=== PATIENT | female | born 1985 | race Caucasian/White ===

== ENCOUNTER 2019-12-26 21:31 | Emergency (ER) | payer BC ==
--- NOTE | 2019-12-26 22:19 | ER Document Report ---
ED Medical Screen (RME) - General Chief Complaint: Finger Injury Stated Complaint: RIGHT RING FINGER INJURY Time Seen by Provider: 12/26/19 22:13 Notes: Patient is a 34-year-old female who presents to the emergency department with a chief complaint of right fourth digit injury. Patient reports a few hours prior to arrival she tripped and fell attempting to catch herself. Patient reports extreme pain to the right fourth digit. - Related Data Allergies/Adverse Reactions: No Known Allergies Allergy (Unverified 12/26/19 22:09) Past Medical History - Social History Frequency of alcohol use: None Drug Abuse: None Physical Exam - Vital signs Vitals: Temp Pulse Resp BP Pulse Ox 98.0 F 100 20 137/81 H 96 12/26/19 21:40 12/26/19 21:40 12/26/19 21:40 12/26/19 21:40 12/26/19 21:40 Course - Re-evaluation Re-evalutation: 12/26/19 22:18 Right fourth digit is swollen and there is an obvious deformity at the DIP joint. Less than 2-second cap refill. - Vital Signs Vital signs: Temp Pulse Resp BP Pulse Ox 98.0 F 100 20 137/81 H 96 12/26/19 21:40 12/26/19 21:40 12/26/19 21:40 12/26/19 21:40 12/26/19 21:40
--- NOTE | 2019-12-26 23:25 | RADIOLOGY REPORT (SQ) ---
EXAM DESCRIPTION: XR FINGERS COMPLETED DATE/TME: 12/26/2019 22:16 CLINICAL HISTORY: 34 years, Female, right 4th digit deformity COMPARISON: None. FINDINGS: 2 views of the right fourth digit. Minimally displaced avulsion fracture involving the dorsal aspect of the base of the fourth middle phalanx with corresponding boutonniere deformity of the fourth digit. Normal osseous mineralization. Soft tissue edema. IMPRESSION: 1. Minimally displaced avulsion fracture involving the dorsal aspect of the base of the fourth middle phalanx. copyright 2010 [employer]- All Rights Reserved
--- NOTE | 2019-12-26 23:46 | ER Document Report ---
HPI - HPI Time Seen by Provider: 12/26/19 22:13 Pain Level: 4 - REPRODUCTIVE Reproductive: DENIES: : Past Medical History - Social History Smoking Status: Never Smoker Frequency of alcohol use: None Drug Abuse: None Course - Vital Signs Vital signs: Temp Pulse Resp BP Pulse Ox 98.0 F 100 20 137/81 H 96 12/26/19 21:40 12/26/19 21:40 12/26/19 21:40 12/26/19 21:40 12/26/19 21:40 - Diagnostic Test Radiology reviewed: Reports reviewed Radiology results interpreted by me: 12/26/19 23:46 Finger X-Ray 12/26/19 22:16 IMPRESSION: 1. Minimally displaced avulsion fracture involving the dorsal aspect of the base of the fourth middle phalanx. copyright 2011 [employer]- All Rights Reserved
[2019-12-27] MEDS ORDERED: LIDOCAINE 1% INJ (10 MG/ML) 10 ML MDV INJ ONE (00:02)
[2019-12-27] MEDS ORDERED: BUPIVACAINE HCL 0.5 % INJ/PF 30 ML SDV INJ ONE (00:02)
--- NOTE | 2019-12-27 00:03 | ER Document Report ---
ED Hand/Wrist Injury - General Chief Complaint: Finger Injury Stated Complaint: RIGHT RING FINGER INJURY Time Seen by Provider: 12/26/19 22:13 Primary Care Provider: MODESTA GONZALEZ DO [Primary Care Provider] - Follow up as needed BERENICE ALVAREZ DO [ACTIVE STAFF] - Follow up tomorrow Notes: Patient is a 34-year-old female who comes emergency department for chief complaint of injury to her right hand, specifically her right fourth digit. Patient states she tripped, fell forward and attempted to catch herself with her hand, awkwardly jammed her right fourth digit on the ground, but managed not to fall with any other injuries. She denies any other complaints. She states her ring finger is bent, she cannot straighten it, and it is painful. She is not on any blood thinners. - Related Data Allergies/Adverse Reactions: No Known Allergies Allergy (Unverified 12/26/19 22:09) Past Medical History - General Information source: Patient - Social History Smoking Status: Never Smoker Frequency of alcohol use: None Drug Abuse: None Lives with: Family Family History: Reviewed & Not Pertinent - Immunizations Immunizations up to date: Yes Hx Diphtheria, Pertussis, Tetanus Vaccination: Yes Review of Systems - Review of Systems Constitutional: No symptoms reported EENT: No symptoms reported Cardiovascular: No symptoms reported Respiratory: No symptoms reported Gastrointestinal: No symptoms reported Genitourinary: No symptoms reported Female Genitourinary: No symptoms reported Musculoskeletal: See HPI Skin: No symptoms reported Hematologic/Lymphatic: No symptoms reported Neurological/Psychological: No symptoms reported Physical Exam - Vital signs Vitals: Temp Pulse Resp BP Pulse Ox 98.0 F 100 20 137/81 H 96 12/26/19 21:40 12/26/19 21:40 12/26/19 21:40 12/26/19 21:40 12/26/19 21:40 - Notes Notes: GENERAL: Patient appears mildly uncomfortable but is not in severe pain HEAD: Normocephalic, atraumatic. EYES: Pupils equal, round, and reactive to light. Extraocular movements intact. ENT: Oral mucosa moist, tongue midline. Oropharynx unremarkable. Airway patent. NECK: Full range of motion. Supple. Trachea midline. No lymphadenopathy. LUNGS: Clear to auscultation bilaterally, no wheezes, rales, or rhonchi. No respiratory distress. Non-tender chest wall. HEART: Regular rate and rhythm. No murmur ABDOMEN: Soft, non-tender. Non-distended. Bowel sounds present in all 4 quadrants. GENITOURINARY: Deferred EXTREMITIES: There is tenderness with slight swelling over the PIP of the right fourth digit with a boutonniere deformity. There is still sensation, capillary refill. Range of motion is limited due to pain. Remaining hand unremarkable, normal wrist with no snuffbox tenderness, normal forearm, elbow, shoulder exams. Otherwise unremarkable. BACK: no cervical, thoracic, lumbar midline tenderness. No saddle anesthesia, normal distal neurovascular exam. Moves all extremities in full range of motion. NEUROLOGICAL: Alert and oriented x3. Normal speech. Cranial nerves II through XII grossly intact. Strength 5/5 in all extremities. PSYCH: Normal affect, normal mood. SKIN: Warm, dry, normal turgor. No rashes or lesions noted. Course - Re-evaluation Re-evalutation: Patient with what appears to be a boutonniere deformity of the right fourth digit secondary to the fall injury. Neurovascularly intact. No other signs of trauma or symptoms reported. X-ray shows avulsion fracture with minimal displacement of the middle phalanx causing the boutonniere deformity. Discussed options with patient, patient requested digital block. This was performed, entry was reduced and splinted, patient referred to orthopedics, discussed importance of follow-up, discussed return precautions, discussed expectations. Patient states understanding and agreement. - Vital Signs Vital signs: Temp Pulse Resp BP Pulse Ox 98.3 F 90 16 137/78 H 98 12/27/19 01:05 12/27/19 01:05 12/27/19 01:05 12/27/19 01:05 12/27/19 01:05 Procedures - Joint Reduction/Fracture Care Right fourth digit Consent obtained: Yes - Verbal Conscious sedation: No Pre-procedure NV exam: Yes - Normal Fracture: Closed Manipulation comment: Hyperextension and then pulling forward Post-procedure NV exam: Yes Post-reduction x-ray: Joint reduced Reduction attempts: 1 Complications: No Notes: Digital block performed using a total of 7 cc of mixed 0.5% bupivacaine and 1% lidocaine. This was performed with excellent results, no complications. There was a slight click in the finger straightened out after hyperextension and pulling on the finger. Afterwards patient did not have the boutonniere deformity even when I was not holding the finger straight. Neurovascular exam intact. Finger splint was placed. Discharge - Discharge Clinical Impression: Closed avulsion fracture of middle phalanx of finger Qualifiers: Encounter type: initial encounter Qualified Code(s): S62.629A - Displaced fracture of middle phalanx of unspecified finger, initial encounter for closed fracture Boutonniere deformity of finger Qualifiers: Laterality: right Qualified Code(s): M20.021 - Boutonniere deformity of right finger(s) Condition: Stable Disposition: HOME, SELF-CARE Additional Instructions: There is an avulsion fracture of the middle bone in your finger with a deformity that was reduced and splinted. Keep the splint on, date, and ibuprofen for pain, elevate whenever possible, follow-up with the orthopedics referral closely for recheck and additional management. Call tomorrow to set up your appointment. Return for any concerning symptoms including severe worsening swelling or pain. Referrals: MODESTA GONZALEZ DO [Primary Care Provider] - Follow up as needed BERENICE ALVAREZ DO [ACTIVE STAFF] - Follow up tomorrow
[2019-12-27 01:07] VITALS: BP 137/78
== END 2019-12-27 01:05 | disposition home or self-care (01) ==
LOC: ER 21:31
DX: S62.624A Displaced fracture of middle phalanx of right ring finger, initial encounter for closed fracture (principal); M20.021 Boutonniere deformity of right finger(s); W19.XXXA Unspecified fall, initial encounter
CPT/HCPCS: 99283; 73140; 26725; J3490